=== PATIENT | female | born 1960 | race Caucasian/White ===

== ENCOUNTER → 2018-03-23 12:21 | Outpatient (CLI) | payer OTHER, SELFPAY ==
--- NOTE | 2018-03-23 | COLBX_PTH ---
PATIENT: JAMES STROUD LOC: [facility] U#:[id number] AGE/SX: 64/F ROOM: RE03/23/[address]: Dr. Glenys Stahl MD : 1960 BED: DIS: SPEC #: [id number] RECD: 03/23/18 13:11 STATUS: PRAVEEN TRENTON #: [id number] SHANTE: 03/23/18 00:[address]: Glenys Stahl DEPT: SURGICAL PATHOLOGY RECD BY: Kenroy Watt Tissues: Cecum, NOS Procedures: Surgery Specimen Level IV HEADER OPERATION: Colonoscopy PRE-OP DIAGNOSIS: Z12.11 TISSUE SUBMITTED: Cecum polyp, cold snare MICROSCOPIC DIAGNOSIS Cecum polyp, biopsy: Fragments of tubular adenoma. ALLA:kathryn 03/24/18 MICROSCOPIC DESCRIPTION Slides are reviewed. GROSS DESCRIPTION Received in fixative is one container labeled with the patient's name and designated cecum polyp. The specimen consists of two irregular fragments of light doyle soft tissue that in aggregate measure 0.4 x 0.2 x 0.1 cm. The specimen is totally submitted in one cassette. / SJ:rg 03/23/18 TC:1 CPT: 28972
--- OUTSIDE RECORDS SUMMARY | 2018-05-09 07:29 | XMS RPT_ITS ---
:1960 Author Organization OHIP Care Team Providers Name Role Phone Glenys Stahl Attending Unavailable Glenys Stahl Referring Unavailable KINDRA HALL (DRUPAL ARCHITECT) Attending Unavailable GLENYS STAHL Admitting Unavailable GLENYS STAHL Attending Unavailable KINDRA HALL (DRUPAL ARCHITECT) Referring Unavailable MISC, PHYSICIAN Attending Unavailable MISC, PHYSICIAN Attending Unavailable MISC, PHYSICIAN Attending Unavailable DR. INGE MACDONALD DO Attending Unavailable GEORGE HARMAN, DR. SHU De Dios Primary Care Unavailable PROBLEMS PROBLEMS DATE TYPE CONDITION / CODE ATTENDING STATUS SOURCE 03/28/2018 Admitting Unknown / MISC, PHYSICIAN Active [facility]Unknown[facility] Repository 04/08/2018 Unknown Z12.11 - Glenys Stahl Active [place] Encounter for [facility] screening for [facility] malignant Repository neoplasm of colon / Z12.11(ICD-10) 03/10/2018 Active Encounter for GLENYS STAHL Active [facility] screening for [facility] malignant Repository neoplasm of colon / Z12.11(ICD-10) 03/16/2018 Admitting Encounter for RENAE RUIZ DR. Active [facility] Diagnosis other general INGE Oscar examination / Repository Z00.8(ICD-10) PROCEDURES PROCEDURES No Procedure Records FoundRESULTS RESULTS THERAPY NT Observed: 03/29/2018 Status: COMPLETED Source: [place] 6:23 AM [facility] REPOSITORY HNO ID: [id number] Author: Provider [facility] Service: (none) Author Type: Physician Type: Therapy (PT/OT/Speech/Resp) Filed: 03/29/2018 6:31 AM Note Text: [place] [id number] PHYSICAL THERAPY REPORT Patient: [place] STROUD [facility] [id number] F Status: REG RCR PT PHYSICAL THERAPY INITIAL EVALUATION DATE OF EVALUATION: 03/28/2018 PHYSICAL THERAPY DIAGNOSIS: 1. Right hip pain. MEDICAL DIAGNOSIS: 1. Primary osteoarthritis of the right hip. CHIEF COMPLAINT-FUNCTIONAL LIMITATIONS: The patient complains of 1. Episodic pain in the right hip with it locking up and/or getting out of place. 2. Increased symptoms at times with leaning down to pick something up. 3. 15-20 episodes over the past 2 months. DATE OF ONSET/INJURY: Symptoms began approximately 2 months ago. HISTORY: The patient notes that about 2 months ago she began having episodes of increased right hip pain. This would occur when she would lean forward to pick something up, go up a step, abduct her right leg out to the side, etc. She notes there would be multiple movements that would exacerbate her symptoms. After her right hip would lock up she could not put weight on it. The patient would then do stretching for her right hip and symptoms would abolish. The patient notes she is able to do most ADLs except for when symptoms are increased. She does have a past medical history of low back pain, right knee cortisone injection. The patient notes that she enjoys doing yoga but has not done very much over the past 2 months due to life activities. PERSONAL FACTORS AND CO-MORBIDITIES: History of low back pain and right knee cortisone injection. EXAMINATION: The patient ambulated into physical therapy today with no gait deviations. Right hip range of motion did appear to be slightly decreased compared to the left hip. Hip flexion was within normal limits when compared to the left. Right hip internal rotation was 30 degrees and external rotation was 30 degrees. Left hip internal rotation was 35 degrees and external rotation was 40 degrees. Straight leg raise on the right was 5/5 and right hip abduction was 5/5. Hamstring length bilaterally was 80 degrees. The patient tested positive for Geena's test on the right. There was only minimal pain, but she had decreased extensibility on the right versus the left. I believe this patient may have right hip osteoarthritis. In addition, it is possible that she has tendonitis/labral pathology. There was no increased pain with compression of the right hip laterally. There was no increased pain with compression of the right hip with her hip flexed 90 degrees lying in supine. Today's treatment consisted of stretching and strengthening to the right hip. CLINICAL PRESENTATION: The patient presents with a/an stable clinical presentation. CLINICAL DECISION MAKING: Clinical decision making of low complexity based on the history, examination, and clinical presentation listed above. PROBLEM LIST-FUNCTIONAL LIMITATIONS: 1. Right hip pain. 2. Episodic right hip symptoms that need to be stretched out. 3. Decreased right hip range of motion. SHORT TERM GOALS: 1. The patient will be independent with a home exercise program in 1 week. SNF FUNCTIONAL GOALS/PATIENT STATED GOALS: 1. The patient will have an abolishment of right hip pain within 6 weeks. 2. The patient will have right hip range of motion symmetric to the left within 6 weeks. 3. The patient will have 0 limitations with recreational activities including walking within 6 weeks. TREATMENT PLAN: The patient is to be seen for right hip stretching and strengthening as appropriate. Modalities will be used as needed and as indicated. FREQUENCY/DURATION: One to two times a week over the next 2-8 weeks. DISCHARGE PLAN: The patient will be discharged from physical therapy upon completion of therapy goals and/or upon plateau in progress. Dictated By: Roxie NUNEZ Signed By: PRESTON STOCKTON 03/29/18 0624 << Signature on File>> Reported By: PRESTON STOCKTON Signed By: PRESTON STOCKTON Tests performed at: [address] [address] PHYSICAL THERAPY Observed: 03/29/2018 Status: F Source: [place] REPORT 6:23 AM [facility] [place] [address] PHYSICAL THERAPY REPORT Patient: JAMES STROUD [facility] [place] [id number] [age] F Status: REG RCR PT PHYSICAL THERAPY INITIAL EVALUATION DATE OF EVALUATION: 03/28/2018 PHYSICAL THERAPY DIAGNOSIS: 1. Right hip pain. MEDICAL DIAGNOSIS: 1. Primary osteoarthritis of the right hip. CHIEF COMPLAINT-FUNCTIONAL LIMITATIONS: The patient complains of 1. Episodic pain in the right hip with it locking up and/or getting out of place. 2. Increased symptoms at times with leaning down to pick something up. 3. 15-20 episodes over the past 2 months. DATE OF ONSET/INJURY: Symptoms began approximately 2 months ago. HISTORY: The patient notes that about 2 months ago she began having episodes of increased right hip pain. This would occur when she would lean forward to pick something up, go up a step, abduct her right leg out to the side, etc. She notes there would be multiple movements that would exacerbate her symptoms. After her right hip would lock up she could not put weight on it. The patient would then do stretching for her right hip and symptoms would abolish. The patient notes she is able to do most ADLs except for when symptoms are increased. She does have a past medical history of low back pain, right knee cortisone injection. The patient notes that she enjoys doing yoga but has not done very much over the past 2 months due to life activities. PERSONAL FACTORS AND CO-MORBIDITIES: History of low back pain and right knee cortisone injection. EXAMINATION: The patient ambulated into physical therapy today with no gait deviations. Right hip range of motion did appear to be slightly decreased compared to the left hip. Hip flexion was within normal limits when compared to the left. Right hip internal rotation was 30 degrees and external rotation was 30 degrees. Left hip internal rotation was 35 degrees and external rotation was 40 degrees. Straight leg raise on the right was 5/5 and right hip abduction was 5/5. Hamstring length bilaterally was 80 degrees. The patient tested positive for Geena's test on the right. There was only minimal pain, but she had decreased extensibility on the right versus the left. I believe this patient may have right hip osteoarthritis. In addition, it is possible that she has tendonitis/labral pathology. There was no increased pain with compression of the right hip laterally. There was no increased pain with compression of the right hip with her hip flexed 90 degrees lying in supine. Today's treatment consisted of stretching and strengthening to the right hip. CLINICAL PRESENTATION: The patient presents with a/an stable clinical presentation. CLINICAL DECISION MAKING: Clinical decision making of low complexity based on the history, examination, and clinical presentation listed above. PROBLEM LIST-FUNCTIONAL LIMITATIONS: 1. Right hip pain. 2. Episodic right hip symptoms that need to be stretched out. 3. Decreased right hip range of motion. SHORT TERM GOALS: 1. The patient will be independent with a home exercise program in 1 week. MAPPING SUPERVISOR FUNCTIONAL GOALS/PATIENT STATED GOALS: 1. The patient will have an abolishment of right hip pain within 6 weeks. 2. The patient will have right hip range of motion symmetric to the left within 6 weeks. 3. The patient will have 0 limitations with recreational activities including walking within 6 weeks. TREATMENT PLAN: The patient is to be seen for right hip stretching and strengthening as appropriate. Modalities will be used as needed and as indicated. FREQUENCY/DURATION: One to two times a week over the next 2-8 weeks. DISCHARGE PLAN: The patient will be discharged from physical therapy upon completion of therapy goals and/or upon plateau in progress. Dictated By: Roxie NUNEZ Signed By: PRESTON STOCKTON 03/29/18 0624 << Signature on File>> Reported By: PRESTON STOCKTON Signed By: PRESTON STOCKTON Tests performed at: [address] [address] COLON BIOPSY (CHOOSE Observed: 03/23/2018 Status: F Source: [facility]) 12:00 AM [facility] REPOSITORY Patient: JAMES STROUD : 1960 (57/F) Acct Num: [id number] Phys: Favio CASTRO,Glenys Unit Num: [id number] Loc: LABSPEC Specimen: [id number] Received: 03/23/18 - 1311 Spec Type: COLON BX TISSUES 1 TISSUES: Cecum, NOS GROSS DESCRIPTION Received in fixative is one container labeled with the patient's name and designated cecum polyp. The specimen consists of two irregular fragments of light doyle soft tissue that in aggregate measure 0.4 x 0.2 x 0.1 cm. The specimen is totally submitted in one cassette. / ALLA:kathryn 03/23/18 TC:1 CPT: 92000 HEADER OPERATION: Colonoscopy PRE-OP DIAGNOSIS: Z12.11 TISSUE SUBMITTED: Cecum polyp, cold snare MICROSCOPIC DESCRIPTION Slides are reviewed. MICROSCOPIC DIAGNOSIS Cecum polyp, biopsy: Fragments of tubular adenoma. SJ:kathryn 03/24/18 Signed Nhan Jacobo 03/24/18 <signature on file> Performed By: #### PCOLBX #### [facility] [place], [address] NURSING PROG Observed: 03/22/2018 Status: COMPLETED Source: [place] 9:50 AM [facility] REPOSITORY HNO ID: [id number] Author: Omi Gonzalez) PRIYANKA Yi Service: Nursing Author Type: Registered Nurse Type: Nursing Progress Note Filed: 03/22/2018 9:58 AM Note Text: Patient did not experience a fall prior to discharge. Patient did not experience a burn prior to discharge. Omi Yi RN NURSING PROG Observed: 03/22/2018 Status: COMPLETED Source: [place] 9:43 AM [facility] REPOSITORY HNO ID: [id number] Author: Omi Gonzalez) PRIYANKA Yi Service: Nursing Author Type: Registered Nurse Type: Nursing Progress Note Filed: 03/22/2018 9:58 AM Note Text: Dressing to go home, with spouse, via wheelchair,no complaints, no nausea. Will nap at home then eat a light breakfast. PT ED Observed: 03/22/2018 Status: COMPLETED Source: [place] 9:36 AM [facility] REPOSITORY HNO ID: [id number] Author: Omi Gonzalez) Kd RN Service: Nursing Author Type: Registered Nurse Type: Patient Education Filed: 03/22/2018 9:36 AM Note Text: POST OP LEARNING RESPONSE INSTRUCTION PROVIDED TO: Patient and family member METHOD OF INSTRUCTION: Individual instruction Written instruction - handouts Verbal instruction PATIENT / FAMILY RESPONSE: Information received as demonstrated by interest and questions FOLLOW-UP PLAN: Patient instructed to call with any further issues SUPPLEMENTAL MATERIAL: None REFERRAL (RECOMMENDATION): None Electronically Signed By: Omi Yi RN In Department: AMBULATORY SURGERY NURSING PROG Observed: 03/22/2018 Status: COMPLETED Source: [place] 9:28 AM [facility] REPOSITORY HNO ID: [id number] Author: Omi BobRn) PRIYANKA Yi Service: Nursing Author Type: Registered Nurse Type: Nursing Progress Note Filed: 03/22/2018 9:29 AM Note Text: Spouse to her side, small sips of ice water, due to tendency to nausea. Resting quietly. NURSING PROG Observed: 03/22/2018 Status: COMPLETED Source: [place] 9:10 AM [facility] REPOSITORY HNO ID: [id number] Author: Omi BobRn) Kd RN Service: Nursing Author Type: Registered Nurse Type: Nursing Progress Note Filed: 03/22/2018 9:28 AM Note Text: Spouse to her side to talk to Dr Stahl, asked questions, patient resting quietly, and went back to lobby to allow patient to rest. NURSING PROG Observed: 03/22/2018 Status: COMPLETED Source: [place] 9:00 AM [facility] REPOSITORY HNO ID: [id number] Author: Omi BobRn) Kd RN Service: Nursing Author Type: Registered Nurse Type: Nursing Progress Note Filed: 03/22/2018 9:26 AM Note Text: Pt into Endo recovery room in satisfactory condition. Resting on left side. Pt. sleepy but arousable. Abdomen soft, no complaints, all safety maintained. Will continue to monitor. NURSING PROG Observed: 03/22/2018 Status: COMPLETED Source: [place] 8:59 AM [facility] REPOSITORY HNO ID: [id number] Author: Puja English RN Service: Nursing Author Type: Registered Nurse Type: Nursing Progress Note Filed: 03/22/2018 8:59 AM Note Text: Patient did not experience a fall within the Intraoperative area. Patient did not experience a burn within the Intraoperative area. Puja English RN NURSING PROG Observed: 03/22/2018 Status: COMPLETED Source: [place] 8:13 AM [facility] REPOSITORY HNO ID: [id number] Author: Omi BobRn) Kd RN Service: Nursing Author Type: Registered Nurse Type: Nursing Progress Note Filed: 03/22/2018 8:13 AM Note Text: [facility] PRE-OP NURSING HAND OFF NOTE SBAR Hand off given to Puja English RN. Hand off was communicated verbally and at the patient's bedside and all questions were answered. FALLS/CHEN Patient did not experience a fall within the Preoperative area. Patient did not experience a burn within the Preoperative area. Omi Yi RN PT ED Observed: 03/22/2018 Status: COMPLETED Source: [place] 7:40 AM [facility] REPOSITORY HNO ID: [id number] Author: Omi (Rn) PRIYANKA Yi Service: Nursing Author Type: Registered Nurse Type: Patient Education Filed: 03/22/2018 7:40 AM Note Text: PRE OP LEARNING ASSESSMENT PROCEDURE/SURGERY: GI PROCEDURES: Colonoscopy READINESS TO LEARN COGNITIVE ABILITY: Alert and oriented MOTIVATION TO LEARN: Eager Interested FAMILY SUPPORT: High - Very involved in pt care PATIENT LEARNS BEST BY: Multiple Methods FACTORS AFFECTING LEARNING: None PHYSICAL LIMITATIONS AFFECTING LEARNING: None Electronically Signed By: Omi Yi RN In Department: AMBULATORY SURGERY CBC Collected: 03/16/2018 Status: F Source: [facility] 11:09 AM [facility] REPOSITORY TYPE CODE TESTS RESULT OUT OF REFERENCE UNITS RANGE LAB WBC(LOINC) 4.50-10.80 10 3/mcL Low WBC 4.40 LAB RBCCT(LOINC 4.10-5.30 10 6/mcL ) RBC 4.43 LAB HGB(LOINC) 12.0-16.0 G/dL Hgb 13.9 LAB HCT(LOINC) 34.0-46.0 % Hct 41.7 LAB MCV(LOINC) 80.0-99.0 fL MCV 94.0 LAB MCH(LOINC) 27.0-33.0 pg MCH 31.3 LAB MCHC(LOINC) 32.0-36.0 G/dL MCHC 33.3 LAB RDW(LOINC) 11.5-15.5 % RDW 12.8 LAB PLT(LOINC) 150-450 10 3/mcL Platelet 161 LAB MPV(LOINC) 6.6-10.5 fL High MPV 12.0 Performed By: #### JOSE LUIS CHAVEZ ANEU #### [place] [address] .AUTO DIFF Collected: 03/16/2018 Status: F Source: [facility] 11:09 AM [facility] REPOSITORY TYPE CODE TESTS RESULT OUT OF REFERENCE UNITS RANGE LAB A[place]IN(LOINC) 50.0-75.0 % Neutrophil % 57.1 LAB LYM(LOINC) 20.0-40.0 % Lymphocyte % 28.9 LAB MON(LOINC) 2.0-13.0 % Monocyte % 10.5 LAB EO(LOINC) 0.0-6.0 % Eosinophil % 2.6 LAB BAS(LOINC) 0.0-2.5 % Basophil % 0.9 LAB ABLYM(LOIN 0.90-4.32 10 3/mcL C) Lymphocyte, 1.30 Absolute LAB DIA(LOINC 0.09-1.40 10 3/mcL ) Monocyte, 0.50 Absolute LAB AEOS(LOINC 0.00-0.65 10 3/mcL ) Eosinophil, 0.10 Absolute LAB ABAS(LOINC 0.00-0.27 10 3/mcL ) Basophil, 0.00 Absolute Performed By: #### JOSE LUIS CHAVEZ ANEU #### [place] [address] .NEUABS Collected: 03/16/2018 Status: F Source: [facility] 11:09 AM [facility] TYPE CODE TESTS RESULT OUT OF REFERENCE UNITS RANGE LAB ANEU(LOINC) 2.25-8.10 10 3/mcL Neutrophil, 2.50 Absolute Performed By: #### JOSE LUIS CHAVEZ, LEIGH #### [place] [address] CNOV Observed: 03/10/2018 Status: COMPLETED Source: [place] 10:20 AM [facility] REPOSITORY Office Visit (GASTWC) JAMES STROUD ([id number]) 1960 F Date Time Provider Department 03/10/18 10:20 AM KINDRA HALL (DEJUAN) [facility] During your visit today, we recorded the following information about you: Pulse Blood pressure 86/minute 112/76 Kindra Hall RN APRN.VESSEL TRAFFIC OFFICER 03/10/2018 11:46 AM Signed James Stroud a 57 year old female who is self referred for colorectal cancer screening. Her PCP is reported to be Gisselle Cantu, in [place]. The patient has not been seen previously. The patient denies a family history of colon cancer. She reports that she had a screening colonoscopy about 12 years ago, in [place]. She recalls that she awoke during the procedure, and also had problems with nausea afterward. Presenting complaint: The patient denies change in bowel habits, rectal bleeding or abdominal pain. Having a bowel movement once a day. The patient tells me that she was scheduled for a colonoscopy in [place] earlier this year, but wasn't able to tolerate the GoLytely prep. She decided to come here since she heard we have options for prep. REVIEW OF SYSTEMS: GENERAL: No weight loss, malaise or fevers HEENT: Negative for frequent or significant headaches, No changes in hearing or vision, no nose bleeds or other nasal problems NECK: Negative for lumps, goiter, pain and significant neck swelling RESPIRATORY: Negative for cough, hemoptysis, wheezing, COPD, dyspnea or shortness of breath CARDIOVASCULAR: Negative for chest pain, leg swelling, hypertension, CHF or palpitations GI: The patient states that her appetite has been good. She does get hungry. There has been no nausea, no vomiting. She denies dysphagia and denies odynophagia. There has not been indigestion or heartburn. There has not been regurgitation. Bowel habits have been regular. There has not been diarrhea. There has not been constipation. The patient denies rectal bleeding. There has not been melena. No abdominal pain. : No history of dysuria, frequency or incontinence CERTIFIED PHLEBOTOMIST: Negative for abnormal vaginal bleeding, abnormal vaginal discharge. LMP: Hyst. MUSCULOSKELETAL: Negative for joint pain or swelling, back pain or muscle pain PSYCH: Negative for sleep disturbance, mood disorder and recent psychosocial stressors. 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 States PCP has done the work up. Was checking q 6m, now yrly. See recent labs in Care Everywhere ENDOCRINE: No thyroid or diabetes. NEURO: No history of headaches, syncope, paralysis, seizures or tremors All other reviewed and negative other than HPI. PAST MEDICAL HISTORY Diagnosis Date - NEGATIVE HISTORY OF PAST SURGICAL HISTORY Procedure Laterality Date - COLONOSCOP W/ OR W/O [facility] SPEC approx date 2005/[place] due to anemia - PAST SURGICAL HISTORY OF 01/2007 hysterectomy History reviewed. No pertinent family history. Current Outpatient Prescriptions: fluticasone propionate (FLONASE NASAL) Use 1 [place] in the nose twice daily. Disp: Rfl: Lactobac no.41/Bifidobact no.7 (PROBIOTIC-10 ORAL) Take 1 capsule by mouth once daily. Disp: Rfl: Cholecalciferol, Vitamin D3, 2,000 unit cap Take 1 capsule by mouth once daily. Disp: Rfl: Estradiol (YUVAFEM) 10 mcg tab vaginal tablet Use 10 mcg vaginally twice a week. Disp: Rfl: No current facility-administered medications for this visit. SOCIAL HISTORY: Patient is . She has never smoked and reports her alcohol use as never. PHYSICAL EXAMINATION: General Appearance: Well appearing, alert, in no acute distress, well-hydrated, well nourished. Skin: Skin color, texture, turgor normal, no suspicious rashes or lesions. Head: Normocephalic, no masses, lesions or abnormalities. Eyes: Anicteric sclera. Oropharynx: Lips, mucosa, and tongue normal, teeth and gums normal, oropharynx normal. Neck: Supple, no adenopathy; thyroid symmetric, normal size. Lungs: lungs clear to auscultation. No wheezing, rhonchi, rales. Heart: RRR without murmur. Abdomen: Normal abdominal exam, Abdomen soft, non-tender. Bowel sounds normal. No masses, organomegaly. Extremities: No deformities, edema. Peripheral Pulses: Normal. Neurologic: CN II-XII grossly intact. Gait normal. Sensation grossly intact. Impression: colorectal cancer screening 2)chronic low platelets Plan: Check PT. We have reviewed the [place] [employer]'s recommendations regarding screening for colorectal cancer. This patient will be scheduled for a colonoscopy using Miralax and Dulcolax as the prep. The preparation, as well as the procedure, has been explained in detail. The risks, benefits, anticipated outcomes and possible complications were mentioned. I explained the procedure in understandable terms and the patient was given printed material concerning the planned procedure. The patient had the opportunity to ask questions concerning the planned procedure. The patient freely consents to the planned procedure. The patient is asked to call with any questions for concerns, or should there be any change in health status between now and the scheduled procedure. I have personally interviewed and examined this patient. I have read the information the MARKETING DIRECTOR documented in this encounter. I spent 30 minutes in the visit, with more than 50% of the total [id number] time of the visit in counseling / coordination of care. Kindra Hall RN APRN.DAVION Hall RN APRN.DAVION 03/10/2018 11:20 AM Addendum Please follow the provided instructions for colonoscopy. You will be using Miralax and Dulcolax prep. Your procedure will be with Dr. Solo on March 17. The endoscopy staff will call you the day before the procedure with specific on arrival time. (Tuesday procedures). Call the phone number provided, if this date will not work. Referring Provider: SELF [[id number]] Allergies As of Date: 03/10/2018 Noted Allergy Reaction SULFA DYNE 03/10/2018 2 - Rash Date Reviewed: 03/10/2018 Reviewed by: Cindy Flynn MARKETING DIRECTOR - Fully Assessed Reason for Visit: colon consult [Other] Primary Visit Diagnosis:Encounter for screening for malignant neoplasm of colon [Z12.11] Other Visit Diagnosis:Thrombocytopenia (HCC) [D69.6] Comment:mild Order(s):COLONOSCOPY SCRN NOT HIGH RISK [[id number]] Order #: [id number] FUTURE PROTHROMBIN TIME/PT [SQPT] Order #: [id number] FUTURE Prescriptions as of 03/10/2018 Sig: FLONASE NASAL Use 1 [place] in the nose twice* PROBIOTIC-10 ORAL Take 1 capsule by mouth once * CHOLECALCIFEROL (VITAMIN D3) * Take 1 capsule by mouth once * ESTRADIOL 10 MCG VAGINAL TABL* Use 10 mcg vaginally twice a * Problem List As Of Date 03/10/2018 Noted Resolved Encounter for screening for malignant neoplasm *INVALID FOR* More... Other instructions from your clinician: Please follow the provided instructions for colonoscopy. You will be using Miralax and Dulcolax prep. Your procedure will be with Dr. Solo on March 17. The endoscopy staff will call you the day before the procedure with specific on arrival time. (Tuesday procedures). Call the phone number provided, if this date will not work. Encounter Status:Closed by KINDRA HALL CNP on 03/10/18 HOSP Observed: 03/10/2018 Status: COMPLETED Source: [facility] 12:00 AM [facility] REPOSITORY Patient:James Stroud MRN: <[id number]> Height:No patient height recorded for this patient. Weight:140 lb (63.504 kg) Outpatient Medications as of 03/22/18: Cholecalciferol, Vitamin D3, 2,000 unit cap Estradiol (YUVAFEM) 10 mcg tab vaginal tablet fluticasone propionate (FLONASE NASAL) Lactobac no.41/Bifidobact no.7 (PROBIOTIC-10 ORAL) Admission/Clinic Administered Medications as of 03/22/18: lactated ringers infusion Problem List: Encounter for screening for malignant neoplasm of colon [Z12.11] Allergies: Sulfa Dyne Date Verified: 03/22/18 Lab Values No results within the last 30 days for the following basenames: K,HCT Progress Notes ([facility]): Haylie Reeves Psr 03/13/2018 2:26 PM Signed Patient called in to reschedule her colonoscopy screening that was scheduled on 03/17/[address] Solo. Patient cannot make it in this week. Patient rescheduled to 03/22/[address] Stahl. Haylie Reeves Psr Progress Notes ([facility]): Cindy Flynn LPN 03/10/2018 11:39 AM Signed Patient scheduled for a colonoscopy with Dr. Solo on 03-17-18. Surgical request submitted. Miralax prep will be used. Cindy Flynn LPN AMBULATORY PATIENT EDUCATION NOTE READINESS TO LEARN Cogntitive ability: Alert and oriented Motivation to learn: Interested Family support: Unable to assess - family not present Instruction provided to: Patient Patient learns best by: Individual instruction, written instruction (hand-outs), and verbal instruction. Factors affecting learning: None Physical limitations affecting learning: None LEARNING RESPONSE Diagnosis: screening Education topic/teaching points: Colonoscopy METHOD OF INSTRUCTION:Teachback:Individual instruction, written instruction (hand-outs), and verbal instruction. Patient/family response: Verbalizes understanding of pre-procedure instructions. Follow-up plan: Complete - No need for follow-up Supplemental material: None Patient instructed to check insurance benefits and precertification.Patient instructed to bring in advanced directives if applicable. Referral Entered: No Does patient have a Pacemaker or Defibrillator? No Electronically Signed By: Cindy Flynn LPN In department: Gastroenterology HISTORY PHYSICAL Observed: 03/09/2018 Status: COMPLETED Source: [facility] 7:09 PM [facility] [place] REPOSITORY HNO ID: [id number] Author: Kindra Hall Service: (none) Author Type: Nurse Practitioner Type: HANDP Filed: 03/10/2018 11:46 AM Note Text: James Preston West a 57 year old female who is self referred for colorectal cancer screening. Her PCP is reported to be Gisselle Cantu, in [place]. The patient has not been seen previously. The patient denies a family history of colon cancer. She reports that she had a screening colonoscopy about 12 years ago, in [place]. She recalls that she awoke during the procedure, and also had problems with nausea afterward. Presenting complaint: The patient denies change in bowel habits, rectal bleeding or abdominal pain. Having a bowel movement once a day. The patient tells me that she was scheduled for a colonoscopy in [place] earlier this year, but wasn't able to tolerate the GoLytely prep. She decided to come here since she heard we have options for prep. REVIEW OF SYSTEMS: GENERAL: No weight loss, malaise or fevers HEENT: Negative for frequent or significant headaches, No changes in hearing or vision, no nose bleeds or other nasal problems NECK: Negative for lumps, goiter, pain and significant neck swelling RESPIRATORY: Negative for cough, hemoptysis, wheezing, COPD, dyspnea or shortness of breath CARDIOVASCULAR: Negative for chest pain, leg swelling, hypertension, CHF or palpitations GI: The patient states that her appetite has been good. She does get hungry. There has been no nausea, no vomiting. She denies dysphagia and denies odynophagia. There has not been indigestion or heartburn. There has not been regurgitation. Bowel habits have been regular. There has not been diarrhea. There has not been constipation. The patient denies rectal bleeding. There has not been melena. No abdominal pain. : No history of dysuria, frequency or incontinence CERTIFIED PHLEBOTOMIST: Negative for abnormal vaginal bleeding, abnormal vaginal discharge. LMP: Hyst. MUSCULOSKELETAL: Negative for joint pain or swelling, back pain or muscle pain PSYCH: Negative for sleep disturbance, mood disorder and recent psychosocial stressors. 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 States PCP has done the work up. Was checking q 6m, now yrly. See recent labs in Care Everywhere ENDOCRINE: No thyroid or diabetes. NEURO: No history of headaches, syncope, paralysis, seizures or tremors All other reviewed and negative other than HPI. PAST MEDICAL HISTORY Diagnosis Date - NEGATIVE HISTORY OF PAST SURGICAL HISTORY Procedure Laterality Date - COLONOSCOP W/ OR W/O BRSH SPEC approx date on due to anemia - PAST SURGICAL HISTORY OF 01/2007 hysterectomy History reviewed. No pertinent family history. Current Outpatient Prescriptions: fluticasone propionate (FLONASE NASAL) Use 1 [place] in the nose twice daily. Disp: Rfl: Lactobac no.41/Bifidobact no.7 (PROBIOTIC-10 ORAL) Take 1 capsule by mouth once daily. Disp: Rfl: Cholecalciferol, Vitamin D3, 2,000 unit cap Take 1 capsule by mouth once daily. Disp: Rfl: Estradiol (YUVAFEM) 10 mcg tab vaginal tablet Use 10 mcg vaginally twice a week. Disp: Rfl: No current facility-administered medications for this visit. SOCIAL HISTORY: Patient is . She has never smoked and reports her alcohol use as never. PHYSICAL EXAMINATION: General Appearance: Well appearing, alert, in no acute distress, well-hydrated, well nourished. Skin: Skin color, texture, turgor normal, no suspicious rashes or lesions. Head: Normocephalic, no masses, lesions or abnormalities. Eyes: Anicteric sclera. Oropharynx: Lips, mucosa, and tongue normal, teeth and gums normal, oropharynx normal. Neck: Supple, no adenopathy; thyroid symmetric, normal size. Lungs: lungs clear to auscultation. No wheezing, rhonchi, rales. Heart: RRR without murmur. Abdomen: Normal abdominal exam, Abdomen soft, non-tender. Bowel sounds normal. No masses, organomegaly. Extremities: No deformities, edema. Peripheral Pulses: Normal. Neurologic: CN II-XII grossly intact. Gait normal. Sensation grossly intact. Impression: colorectal cancer screening 2)chronic low platelets Plan: Check PT. We have reviewed the [place] [employer]'s recommendations regarding screening for colorectal cancer. This patient will be scheduled for a colonoscopy using Miralax and Dulcolax as the prep. The preparation, as well as the procedure, has been explained in detail. The risks, benefits, anticipated outcomes and possible complications were mentioned. I explained the procedure in understandable terms and the patient was given printed material concerning the planned procedure. The patient had the opportunity to ask questions concerning the planned procedure. The patient freely consents to the planned procedure. The patient is asked to call with any questions for concerns, or should there be any change in health status between now and the scheduled procedure. I have personally interviewed and examined this patient. I have read the information the MARKETING DIRECTOR documented in this encounter. I spent 30 minutes in the visit, with more than 50% of the total [id number] time of the visit in counseling / coordination of care. Kindra Hall RN ELECTRONIC EQUIPMENT TRADES WORKER.VESSEL TRAFFIC OFFICER CBC Collected: 02/07/2018 Status: F [facility]15 AM [facility]PITAL REPOSITORY Order Comment: FAX TO [phone] TYPE CODE TESTS RESULT OUT OF RANGE REFERENCE UNITS LAB L200.0100 4.5-10.0 x10(3) Normal WBC 4.6 LAB L200.0200 3.30-5.00 x10(6) Normal RBC 4.43 LAB L200.0210 12.0-16.0 g/dL Normal HGB 13.8 LAB L200.0220 36.0-48.0 % Normal HCT 41.1 LAB L200.0230 80.0-99.0 fl Normal MCV 92.7 LAB L200.0240 28.5-32.9 pg Normal MCH 31.0 LAB L200.0250 33.0-36.0 g/dL Normal MCHC 33.5 LAB L200.0260 12.5-15.7 % Normal RDW 12.7 LAB L200.0270 150-450 X10(3) Low PLT 143 LAB L200.0290 7.5-9.5 fl High MPV 11.7 LAB L200.0300 45.0-73.0 % Normal NEUT% 53.1 LAB L200.0310 16.0-48.0 % Normal LYMPH% 27.1 LAB L200.0320 4.3-11.2 % High MONO% 11.7 LAB L200.0330 0.5-4.9 % High EOS% 7.5 LAB L200.0340 0.0-1.0 % Normal BASO% 0.6 LAB L200.0350 1.40-6.50 x10(3) Normal NEUT# 2.40 LAB L200.0360 1.00-3.50 x10(3) Normal LYMPH# 1.20 LAB L200.0370 0.30-0.80 x10(3) Normal MONO# 0.50 LAB L200.0380 0.00-0.54 x10(3) Normal EOS# 0.30 LAB L200.0390 0.00-0.10 x10(3) Normal BASO# 0.00 Performed By: #### L200.0010 #### [facility] [address] [place] [id number] CMP Collected: 02/07/2018 Status: F [facility] 8:15 AM HOSPITAL REPOSITORY Order Comment: FAX TO [phone] TYPE CODE TESTS RESULT OUT OF RANGE REFERENCE UNITS LAB L100.0060 74-106 mg/dL GLUCOSE Normal 88 LAB L100.0110 6-20 mg/dL BUN Normal 16 LAB L100.0131 0.50-0.90 mg/dL Normal CREATININE 0.66 LAB L100.0140 8.6-10.0 mg/dL CALCIUM Normal 9.8 LAB L100.0150 135-145 mmol/L SODIUM Normal 142 LAB L100.0160 3.5-5.0 mmol/L Normal POTASSIUM 4.4 LAB L100.0170 98-107 mmol/L CHLORIDE Normal 102 LAB L100.0180 22-29 mmol/L TCO2 Normal 28 LAB L100.0185 15-22 mmol/L ANION Normal GAP 16.4 LAB L100.0200 6.4-8.3 g/dL TOTAL Normal PROTEIN 7.3 LAB L100.0210 3.5-5.2 g/dL ALBUMIN Normal 4.3 LAB L100.0220 0.2-1.2 mg/dL TOTAL Normal BILIRUBIN 0.4 LAB L100.0240 5-32 U/L AST Normal 27 LAB L100.0250 5-33 U/L ALT Normal 23 LAB L100.0260 35-105 U/L ALK. Normal PHOS 68 LAB L100.0262 1.5-4.5 g/dL Normal GLOBULIN,CALC 3.0 LAB L100.0264 1.1-2.5 A:G Normal RATIO 1.43 LAB L100.0274 eGFR Normal nonAFR Martina > 60 ml/Min/1.73m 2 LAB L100.0275 eGFR if Normal AFR MARTINA > 60 ml/min/1.73m 2 Result Comment: eGFR >= 60 Indicates normal kidney function. * eGFR IS AN ESTIMATE * (AFR MARTINA = ) (non-AFR AM = NON-) MDRD calculation used in the eGFR should not be used to dose medications. For further limitations of the eGFR please refer to the Physician Website or the National Kidney Disease Education Program website (www.nkdep.nih.gov). Performed By: #### L100.0005, L100.0040, L304.0140 #### [facility] [address] [place] [address] LIPID PANEL Collected: 02/07/2018 Status: F [facility] 8:15 AM HOSPITAL REPOSITORY Order Comment: FAX TO [phone] TYPE CODE TESTS RESULT OUT OF REFERENCE UNITS RANGE LAB L100.0280 130-200 mg/dL CHOLESTEROL High 257 LAB L100.0290 mg/dL TRIGLYCERIDE Normal 107 Result Comment: TRIG: DESIRABLE: <150 mg/dL LAB L100.0300 mg/dL Normal HDL 83 Result Comment: National Cholesterol Education Program (NCEP) guidelines: <40 mg/dL: Low HDL-Cholesterol(major risk factor for CHD) > or = 60 mg/dL: High HDL-Cholesterol(negative risk factor for CHD) HDL-cholesterol is affected by a number of factors, e.g., smoking, exercise, hormones, sex, and age. 4th Generation Test; Results may be approximately 7% lower than previous values. LAB L100.0310 6-40 mg/dL Normal VLDL 21 LAB L100.0320 mg/dL Normal LDL 153 Result Comment: LDL: OPTIMAL FOR PEOPLE AT VERY HIGH RISK <70 OPTIMAL <100 NEAR OPTIMAL 100-129 BORDERLINE HIGH 130-159 HIGH 160-189 VERY HIGH >=190 Source: 2008 NCEP ATP III, ADA Guidelines Reviewed: July, LAB L100.0330 Normal LDL/HDL RATIO 1.8 Performed By: #### L100.0005, L100.0040, L304.0140 #### [facility] [address] [place] [address] TSH Collected: 02/07/2018 Status: F Source[facility] 8:15 AM HOSPITAL REPOSITORY Order Comment: FAX TO [phone] TYPE CODE TESTS RESULT OUT OF RANGE REFERENCE UNITS LAB L304.0140 0.45-4.50 uIU/mL Normal TSH 1.51 Performed By: #### L100.0005, L100.0040, L304.0140 #### [facility] [address] [place] [address] ALLERGIES ALLERGIES DATE TYPE / CODE NAME / CODE REACTION SEVERITY SOURCE 03/10/2018 DRUG/[id number] SULFA DYNE RASH [facility] 03(SNOMED [facility] CT) Repository ENCOUNTERS ENCOUNTERS ADMIT/DISCHARGE ACCOUNT NUMBER ADMITTING ENCOUNTER LOCATION SOURCE CLASS 04/12/2018 [id number] Ambulatory UNIBuilding: [facility] Repository 03/28/2018/04/10/20 [id number] Ambulatory UNIBuilding: [address] Repository 03/23/2018 [id number] Ambulatory [facility] ding:[facility] Repository 03/22/2018/03/22/20 [id number] GLENYS STAHL Ambulatory [address] Repository 03/16/2018/03/20/20 [id number] Ambulatory [place] [address] FPBuilding:[facility] Repository 03/10/2018/03/13/20 [id number] Ambulatory [address] Repository 02/07/2018 [id number] Ambulatory [place] ding:[facility] Repository PAYERS PAYERS ENCOUNTER GUARANTOR PAYER SUBSCRIBER SOURCE 04/12/2018 JAMES ROBISON [address] Insurance:[facility] icy Number: Repository [place], [place] [id number]: [phone]) Date: [id number] (HP) 03/28/2018 JAMES ROBISON [address] Insurance:[facility] icy Number: Repository [place], [place] [id number]: [phone]) Date: (HP) 03/23/2018 JAMES ROBISON [address] Insurance:[facility], icy Number: [facility] [address]Tow: [id number] Repository Date:[id number] [address] () [address] [address]TW: 03/23/2018 Secondary NOT GIVENUNK Cathy Insurance:SELF PAY [facility] Number: Effective Repository Date:2018-03-23 03/16/2018 AJMES Preston [facility] [id number] Foundation D14Wltpml Number: [facility] Repository [place] [id number] [facility], Date:2018-03-16 [id number]: [phone]) [place] [id number] [phone] [id number] Name:[address] (HP)Tel: [phone] .COMTel: [phone] [address], [place] [address] () [phone] (HP) [phone]: 02/07/2018 JAMES ROBISON [address] Insurance:[facility] icy Number: Repository [place], [place] [id number]: ([phone]) Date: ()
== END ==
PROVIDERS: Referring Provider Surgery; Visit Provider Surgery
DX: Z12.11 Encounter for screening for malignant neoplasm of colon (principal); D12.0 Benign neoplasm of cecum
CPT/HCPCS: 88305